=== PATIENT | female | born 1960 | race Caucasian/White ===

== ENCOUNTER 2018-07-20 08:00 | Day surgery (SDC) | payer BC ==
[~2018-07-20] VITALS: Ht 177.8 cm; Wt 78.9 kg
[2018-07-20] VITALS (7 sets, daily range): BP systolic 102–134; BP diastolic 58–94
[2018-07-20] MEDS ORDERED: symbicort INH (08:56)
[2018-07-20] MEDS ORDERED: WELLBUTRIN XL150 MG ORAL (08:58)
[2018-07-20] MEDS ORDERED: AMBIEN10 M1 ORAL (08:58)
[2018-07-20] MEDS ORDERED: PREVACID15 MG ORAL (08:59)
[2018-07-20] MEDS ORDERED: ZYRTEC10 MG ORAL (09:00)
--- NOTE | 2018-07-20 09:08 | Anethesia Preoperative Eval ---
Anesthesia Pre-op PMH/ROS General Date of Evaluation: July 20, 2018 Time of Evaluation: 09:05 Anesthesiologist: rosalio ASA Score: ASA 3 Mallampati Score Class I : Soft palate, uvula, fauces, pillars visible Class II: Soft palate, uvula, fauces visible Class III: Soft palate, base of uvula visible Class IV: Only hard plate visible Mallampati Classification: Class II Surgeon: diony Diagnosis: microscopic colitis, gerd, Surgical Procedure: egd/colonoscopic Anesthesia History: none Social History: smoking - nonsmoker Family History: no anesthesia problems Allergies: Coded Allergies: No Known Allergies (Unverified , 07/17/18) Medications: see eMAR Patient NPO?: Yes Past Medical History Pulmonary: Reports: asthma Gastrointestinal/Genitourinary: Reports: GERD Neurologic/Psychiatric: Reports: depression/anxiety PSxH Narrative: bilateral herniorrhaphy Anesthesia Pre-op Phys. Exam Physician Exam Last Vital Signs Date Time Temp Pulse Resp B/P (MAP) Pulse Ox O2 Delivery O2 Flow Rate FiO2 07/20/18 09:00 Room Air 07/20/18 08:52 98.2 76 18 125/94 100 Constitutional: NAD Neurologic: CN 2-12 intact Cardiovascular: RRR Respiratory: CTA Gastrointestinal: S/NT/ND Airway Exam Mallampati Score: Class II MO: limited Neck: flexible TMD: 2fb ROM: limited Anesthesia Pre-op A/P Risk Assessment & Plan Assessment: asa3 Plan: mac Status Change Before Surgery: No Pre-Antibiotics Drug: Maribel Erickson MD July 20, 2018 09:08
[2018-07-20] MEDS ORDERED: Atropine Inj 1mg/10ml Syr IV PRN (09:15)
[2018-07-20] MEDS ORDERED: Midazolam 2mg/2ml Inj IVP PRN (09:15)
[2018-07-20] MEDS ORDERED: DiphenhydrAMINE 50mg/ml Inj IVP PRN (09:15)
[2018-07-20] MEDS ORDERED: fentaNYL 100 mcg/2 mL IV PRN (09:15)
[2018-07-20] MEDS ORDERED: Propofol 200mg/20ml IV ONE (10:00)
[2018-07-20] MEDS ORDERED: LR 1000ml ONE (10:00)
[2018-07-20] MEDS ORDERED: Lidocaine 1% MPF 10mg/ml 5ml ONE (10:00)
--- NOTE | 2018-07-20 10:15 | Pre-Procedure Note/Attestation ---
Pre-Procedure Note/Attestation Complete Prior to Procedure Planned Procedure: not applicable Procedure Narrative: esophagogastroduodenoscopy and colonoscopy Indications for Procedure Pre-Operative Diagnosis: screening colon, GERD Attestation I attest that I discussed the nature of the procedure; its benefits; risks and complications; and alternatives (and the risks and benefits of such alternatives ), prior to the procedure, with the patient (or the patient's legal sales account representative). I attest that, if there was a reasonable possibility of needing a blood transfusion, the patient (or the patient's legal sales account representative) was given the [facility] standardized written summary, pursuant to the [place] Blood Safety Act ([place] Health and Safety Code # 1645, as amended). I attest that I re-evaluated the patient just prior to the surgery and that there has been no change in the patient's H&P, except as documented below: Juilo Gordillo MD July 20, 2018 10:15
--- NOTE | 2018-07-20 10:16 | Short Stay Surgery H&P ---
History of Present Illness History of Present Illness Chief Complaint diarrhea, ERD HPI Leslie Laurent is a 58 year old female who was admitted on for Microscopic Colitis,Gerd,History Of Hemorrhoid Patient History Allergies: Coded Allergies: No Known Allergies (Unverified , 07/17/18) Medication History Scheduled Bupropion Hcl* (Wellbutrin Xl*), 150 MG ORAL BID, (Reported) Cetirizine Hcl* (Zyrtec*), 10 MG ORAL DAILY, (Reported) Lansoprazole* (Prevacid*), 15 MG ORAL DAILY, (Reported) Scheduled PRN Zolpidem Tartrate* (Ambien*), 10 MG ORAL HS PRN for Insomnia, (Reported) [symbicort], 2 PUFFS INH PRN PRN for Shortness of Breath, (Reported) Review of Systems Cardiovascular: Reports: no symptoms Respiratory: Reports: no symptoms Skeletal: Reports: no symptoms Gastrointestinal: Reports: no symptoms Genitourinary: Reports: no symptoms Neurologic: Reports: no symptoms Endocrine: Reports: no symptoms Hematologic: Reports: no symptoms Physical Exam Vital Signs Last Vital Signs Date Time Temp Pulse Resp B/P (MAP) Pulse Ox O2 Delivery O2 Flow Rate FiO2 07/20/18 09:00 Room Air 07/20/18 08:52 98.2 76 18 125/94 100 Skin: normal HENT: normal Heart: normal Lungs: normal Abdomen: normal Extremities: normal Plan Plan of Care esophagogastroduodenoscopy and colonoscopy Attestation Are the patient's medical conditions optimized for surgery? Attestation Response: yes Julio Gordillo MD July 20, 2018 10:16
--- NOTE | 2018-07-20 10:44 | Endoscopy Procedure Note ---
Endoscopy Procedure Note General Indication for Procedure: screening colon, GERD Procedures Performed: EGD, colonoscopy Operative Findings/Diagnosis: gastritis, one polyp Specimen: yes Pt Tolerated Procedure Well: Yes Estimated Blood Loss: none Anesthesia Anesthesiologist: rosalio Anesthesia: MAC Inserted Devices Implant(s) used?: No Quality Quality of Bowel Preparation: Good Did scope reach the cecum?: Yes Was there any complications?: No GI Core Measures 50 yrs or older w/o bx or poly: No 10yrs. F/U recommended: Yes If not recommended, why?: Above average risk 18 years or older w/prev. colo: Yes <3yrs. since last colonoscopy: No Julio Gordillo MD July 20, 2018 10:44
--- NOTE | 2018-07-20 10:58 | Immediate Post-Op Evaluation ---
Immediate Post-Op Evalulation Immediate Post-Op Evalulation Procedure: egd/colonoscopy/bx Date of Evaluation: July 20, 2018 Time of Evaluation: 10:59 IV Fluids: 550ml lr Blood Products: none Estimated Blood Loss: negligible Blood Pressure Systolic: 110 Blood Pressure Diastolic: 70 Pulse Rate: 83 Respiratory Rate: 18 O2 Sat by Pulse Oximetry: 100 Temperature (Fahrenheit): 97.0 Pain Score (1-10): 0 Nausea: No Vomiting: No Complications none Patient Status: awake, reacts, patent Hydration Status: adequate Drug: Maribel Erickson MD July 20, 2018 10:58
--- NOTE | 2018-07-20 11:01 | 48 Hour Post Anesthesia Eval ---
Post Anesthesia Evaluation Procedure: egd/colonoscopy/bx Date of Evaluation: July 20, 2018 Time of Evaluation: 11:01 Blood Pressure Systolic: 125 0: 58 Pulse Rate: 80 Respiratory Rate: 18 Temperature (Fahrenheit): 97.0 O2 Sat by Pulse Oximetry: 100 Airway: patent Nausea: No Vomiting: No Pain Intensity: 0 Hydration Status: adequate Cardiopulmonary Status: stable Mental Status/LOC: patient returned to baseline Post-Anesthesia Complications: none Follow-up care needed: N/A Maribel Wagner MD July 20, 2018 11:01
--- NOTE | 2018-07-20 11:45 | Procedure Note ---
DATE OF PROCEDURE: 07/20/2018 SURGEON: Julio Gordillo M.D. PROCEDURE: Upper endoscopy with biopsy and colonoscopy with biopsy. ANESTHESIA: Per Dr. Coker. INSTRUMENT: Olympus adult flexible colonoscope and upper endoscope. INDICATIONS: Screening colonoscopy, diarrhea, abdominal pain, and GERD. REASON FOR PROCEDURE: The procedure, risks, benefits, and possible consequences, including hemorrhage, aspiration, perforation and infection, and alternative treatments, were explained to the patient/legal guardian by Dr. Julio Gordillo and the patient/legal guardian understood and accepted these risks. PROCEDURE IN DETAIL: After informed consent was obtained and the patient was adequately sedated, Olympus upper endoscope was advanced from mouth into the second portion of the duodenum and retroflexion was performed in the stomach. The patient has diffuse gastritis. Random biopsy from antrum was obtained to rule out H. pylori infection. At this time, the upper endoscope was retrieved and the patient was turned over for colonoscopy. First, rectal exam was performed, which was positive for internal hemorrhoids. Then, the scope was advanced from the rectum into the cecum documented by appendiceal orifice, ileocecal valve, and right upper quadrant palpation. Quality of prep was very good. The patient had one diminutive polyp in the transverse colon, removed with the cold biopsy forceps technique. No further polyp seen. Random biopsy from the right and left colon was obtained for evaluation of microscopic colitis. Retroflexion of rectum showed evidence of medium-sized internal hemorrhoids. SUMMARY OF FINDINGS: 1. Gastritis, status post biopsy. 2. One colonic polyp removed, see above for details. 3. Internal and external hemorrhoids. 4. Status post biopsy of the right and left colon to rule out microscopic colitis. RECOMMENDATIONS: Follow up pathology and treat accordingly. We recommend repeat colonoscopy in five years. Julio Gordillo M.D. DR: KRISTIN JOB#: [id number] CC:
--- NOTE | 2018-07-22 20:28 | Cardiology Report ---
APPROVED REPORT EKG Measurement Heart [id number] Normal sinus rhythm Normal ECG
== END 2018-07-20 11:45 | disposition home or self-care (01) ==
LOC: GAS 08:00
DX: Z12.11 Encounter for screening for malignant neoplasm of colon (principal); K21.9 Gastro-esophageal reflux disease without esophagitis; R19.7 Diarrhea, unspecified; R10.9 Unspecified abdominal pain; K64.8 Other hemorrhoids; K64.4 Residual hemorrhoidal skin tags; K29.50 Unspecified chronic gastritis without bleeding; D12.3 Benign neoplasm of transverse colon; K63.5 Polyp of colon; F32.9 Major depressive disorder, single episode, unspecified; F41.9 Anxiety disorder, unspecified; Z79.899 Other long term (current) drug therapy
CPT/HCPCS: 43239; 45380; 93005; J2704; 94003; 94150